=== PATIENT | male | born 1985 | race Hispanic/Latino ===

== ENCOUNTER → 2025-06-02 | Day surgery (SDC) | payer OTHER ==
[~2025-06-02] MED LIST: LIDOCAINE HCL 2% LOCAL INJ 5 ML SDV VIAL INJ ONE; MIDAZOLAM HCL 2 MG/2 ML VIAL ONE; PROPOFOL IV EMULSION 50 ML IV ONE
[2025-06-02] MEDS: LACTATED RINGER'S 1,000 ML ONE (13:10)
[2025-06-02 15:49] VITALS: TEMP 97.6
[2025-06-02 16:15] VITALS: BP 140/90; PULSE 78; RESP 16; O2SAT 97
== END | disposition home or self-care (01) ==
LOC: OR 12:44
PROVIDERS: ATTEND Internal Medicine Gastroenterology
DX: K62.5 Hemorrhage of anus and rectum (principal); D12.3 Benign neoplasm of transverse colon; K62.1 Rectal polyp; K64.8 Other hemorrhoids; K64.4 Residual hemorrhoidal skin tags; Z71.89 Other specified counseling; Z68.30 Body mass index [BMI] 30.0-30.9, adult; Z71.3 Dietary counseling and surveillance
CPT/HCPCS: 45378; 45385; 88305; J2003; J2250